=== PATIENT | female | born 1995 | race Caucasian/White ===

== ENCOUNTER → 2017-05-02 | Outpatient (CLI) | payer OTHER ==
[2017-05-02 12:52] LABS: BASO % 0.3 %; BASO ABS # 0.02 K/uL (0-0.2); COMPLETE YES; EOS % 0.8 %; HEMATOCRIT 37.2 % (37-47); IG% 0.2 %; LYMPH % 33.6 %; LYMPH ABS # 2.18 K/uL (1.2-3.4); MEAN CELL VOLUME 87.3 fL (80-100); MEAN CORPUSCULAR HEMOGLOBIN 28.9 pg (25-34); MEAN CORPUSCULAR HGB CONC 33.1 g/dl (32-36); MEAN PLATELET VOLUME 11.2 fL (7.4-10.4); MONO % 7.7 %; NEUT % 57.4 %; PLATELET COUNT 301 K/uL (130-400); RED BLOOD COUNT 4.26 M/uL (4.2-5.4); WHITE BLOOD COUNT 6.49 K/uL (4.8-10.8)
[2017-05-02 13:16] LABS: ALT/SGPT 23 U/L (12-78); BLOOD UREA NITROGEN 9 mg/dl (7-18); BUN/CREATININE RATIO 10.5 (10-20); CALCIUM 9.3 mg/dl (8.5-10.1); CARBON DIOXIDE 25 mmol/L (21-32); CHLORIDE 106 mmol/L (98-107); CHOLESTEROL 192 mg/dl (0-200); CREATININE 0.85 mg/dl (0.60-1.20); GLUCOSE 87 mg/dl (70-99); POTASSIUM 4.1 mmol/L (3.5-5.1); SODIUM 139 mmol/L (136-145)
[2017-05-02 13:27] LABS: ALB/GLOB RATIO 0.8 (0.9-2); ALKALINE PHOSPHATASE 90 U/L (45-117); AST/SGOT 16 U/L (15-37); CHOLESTEROL/HDL RATIO 3.8; HDL CHOLESTEROL 51 mg/dl; LDL CHOLESTEROL CALCULATED 118 mg/dl; TRIGLYCERIDES 115 mg/dl (0-150); VERY LOW DENSITY LIPOPROT CALC 23 mg/dl
[2017-05-02 14:58] LABS: LYME DISEASE AB IGG NEG (NEG)
[2017-05-02 15:01] LABS: LYME DISEASE AB IGM NEG (NEG)
== END | disposition home or self-care (01) ==
LOC: C.LABPBG 08:45
PROVIDERS: ATTEND Physician Assistant
DX: Z00.00 Encounter for general adult medical examination without abnormal findings (principal); R53.83 Other fatigue

== ENCOUNTER → 2018-03-06 | Outpatient (CLI) | payer OTHER ==
--- NOTE | 2018-03-06 08:04 | DIAGNOSTIC IMAGING REPORT ---
(BARIUM SWALLOW) ESOPHAGUS CLINICAL HISTORY: R09.82 Post-nasal drip, hoarseness. Clearing of throat. Possible reflux. COMPARISON STUDY: None FLUOROSCOPY TIME: 1.1 minutes. NUMBER OF FLUOROSCOPIC IMAGES: 20 FINDINGS: The patient swallowed effervescent granules and barium without difficulty. Rapid sequence swallows in the AP and lateral projections were within functional limits. No esophageal masses are visualized. There are no ulcerations. There is no reflux. The patient swallowed one half inch barium tablet which freely passed into the stomach. IMPRESSION: Normal study Electronically signed by: Linwood Schultz M.D. 03/06/2018 8:02 AM Dictated Date/Time: 03/06/2018 8:01 AM
--- NOTE | 2018-03-06 08:23 | DIAGNOSTIC IMAGING REPORT ---
Study: Fusion CT of the sinuses HISTORY: Sinusitis. FINDINGS: All major sinuses are clear. The ostiomeatal units are patent bilaterally. No significant mucosal thickening. No significant nasal occlusive change. Orbital margins are negative for destructive process. IMPRESSION: Normal study. Electronically signed by: Stanley Gilman M.D. 03/06/2018 8:22 AM Dictated Date/Time: 03/06/2018 8:18 AM
== END | disposition home or self-care (01) ==
LOC: C.RAD 07:27
PROVIDERS: ATTEND Physician Assistant
DX: R09.82 Postnasal drip (principal)

== ENCOUNTER → 2018-06-23 | Outpatient (CLI) | payer OTHER ==
--- NOTE | 2018-06-23 14:38 | DIAGNOSTIC IMAGING REPORT ---
THYROID ULTRASOUND HISTORY: HX OF DYSPHAGIA, SENSATION OF SWOLLEN THROAT COMPARISON: None. FINDINGS: Right lobe: 5.1 x 1.3 x 1.5 cm. A 2 mm hypoechoic nodule/cyst. No suspicious nodules identified. Left lobe: 4.2 x 1.5 x 1.0 cm. No nodules. Isthmus: 2 mm in thickness. No nodules. IMPRESSION: A 2 mm nodule/cyst within the right thyroid lobe. Otherwise, normal thyroid gland. Electronically signed by: Jozef Forbes M.D. 06/23/2018 2:36 PM Dictated Date/Time: 06/23/2018 2:35 PM
[2018-06-23 14:40] LABS: HEMOGLOBIN A1C 5.7 % (4.5-5.6)
== END | disposition home or self-care (01) ==
LOC: C.ULTR 13:47
DX: E04.1 Nontoxic single thyroid nodule (principal); J30.1 Allergic rhinitis due to pollen; R68.89 Other general symptoms and signs; Z87.19 Personal history of other diseases of the digestive system